=== PATIENT | male | born 1935 | race Caucasian/White ===

== ENCOUNTER 2016-08-19 09:24 | Day surgery (SDC) | payer MEDICARE, OTHER ==
[~2016-08-19] VITALS: Ht 160 cm; Wt 71.5 kg
[2016-08-19] VITALS (11 sets, daily range): BP systolic 110–135; BP diastolic 51–88; PULSE 81–96; RESP 15–24; Ht 160 cm; Wt 71.5 kg
[2016-08-19] MEDS ORDERED: LIDOCAINE 1% (MPF) 30 ML INJ ONE (10:03)
[2016-08-19] MEDS ORDERED: HEPARIN 1000 UNITS/ML 10 ML INJ ONE (10:03)
[2016-08-19] MEDS ORDERED: THROMBIN 5000 UNIT VIAL ONE (10:03)
[2016-08-19] MEDS ORDERED: GELATIN SIZE 100 SPONGE ONE (10:03)
[2016-08-19] MEDS ORDERED: DONE10TA7 PO (10:27)
[2016-08-19] MEDS ORDERED: QUET100T32 PO (10:28)
[2016-08-19] MEDS ORDERED: NATE60TA PO (10:28)
[2016-08-19] MEDS ORDERED: CARV3.12 PO (10:28)
[2016-08-19] MEDS ORDERED: DIVA-16 PO (10:31)
[2016-08-19] MEDS ORDERED: LEVO100T87 PO (10:32)
[2016-08-19] MEDS ORDERED: ATOR20TA38 PO (10:33)
[2016-08-19] MEDS ORDERED: MEMA10TA16 PO (10:35)
[2016-08-19] MEDS ORDERED: AMLO5TAB4 PO (10:36)
[2016-08-19] MEDS ORDERED: CLON-379 PO (10:37)
[2016-08-19] MEDS ORDERED: ALBU18HF INHALATION (10:37)
--- NOTE | 2016-08-19 10:39 | HPN ---
Date/Time of Note Date/Time of Note DATE: 08/19/16 TIME: 10:38 Interval H&P Admission Note Pt. seen H&P reviewed: No system changes FOZIA MARINO MD Aug 19, 2016 10:39
[2016-08-19] MEDS ORDERED: HEPARIN 1000 UNITS/ML 10 ML INJ IRR ONE (10:45)
[2016-08-19 10:51] LABS: ADD SCAN DIFF NO
[2016-08-19 10:54] LABS: BASOPHIL # 0.1 10^3/ul (0.0-0.1); BASOPHILS % 0.8 % (0.0-2.0); EOSINOPHILS # 0.3 10^3/ul (0.0-0.5); EOSINOPHILS % 3.5 % (0.0-7.0); HEMOGLOBIN 10.1 g/dl (14.0-18.0); LYMPHOCYTES # 0.9 10^3/ul (0.8-2.9); LYMPHOCYTES % 11.8 % (15.0-51.0); MEAN CORPUSCULAR HEMOGLOBIN 34.1 pg (29.0-33.0); MEAN CORPUSCULAR HGB CONC 34.8 g/dl (32.0-37.0); MEAN PLATELET VOLUME 10.2 fl (7.4-10.4); MONOCYTE # 0.9 10^3/ul (0.3-0.9); MONOCYTES % 11.8 % (0.0-11.0); NEUTROPHIL # 5.3 10^3/ul (1.6-7.5); NEUTROPHILS % 71.7 % (39.0-77.0); PLATELET COUNT 102 10^3/UL (140-415); RED BLOOD COUNT 2.96 10^6/ul (4.70-6.10); RED CELL DISTRIBUTION WIDTH 12.9 % (11.5-14.5); WHITE BLOOD COUNT 7.4 10^3/ul (4.8-10.8)
[2016-08-19 11:12] LABS: ALBUMIN 4.4 g/dl (3.3-4.9); ALBUMIN/GLOBULIN RATIO 1.91; BILIRUBIN,INDIRECT 0.3 mg/dl (0-1.1); BILIRUBIN,TOTAL 0.3 mg/dl (0.2-1.3); TOTAL PROTEIN 6.7 g/dl (6.1-8.1)
[2016-08-19] MEDS ORDERED: PROPOFOL 40 ML ONE (11:13)
[2016-08-19] MEDS ORDERED: FENTAnyl 50 MCG/ML VIAL ONE (11:13)
[2016-08-19] MEDS ORDERED: METOCLOPRAMIDE 10 MG INJ ONE (11:13)
[2016-08-19] MEDS ORDERED: ROPIVACAINE 0.2% 20 ML VIAL ONE (11:13)
[2016-08-19] MEDS ORDERED: MIDAZOLAM 1 MG/ML 2 ML INJ ONE (11:13)
--- NOTE | 2016-08-19 11:16 | RADRPT ---
PROCEDURE: XR Chest AP portable CLINICAL INDICATION: AV graft creation TECHNIQUE: An AP portable radiograph of the chest was submitted. COMPARISON: None. FINDINGS: Support Hardware: None Cardiovascular: The heart is not enlarged and the aorta appears unremarkable wall aorta appears athe rosclerotic. Lung Choi: A poor inspiratory effort compresses lung parenchyma with discoid atelectasis noted at the lung bases. No alveolar infiltrate is evident. Pleural Spaces: No pneumothorax or pleural effusion is identified. Osseous Structures: The osseous elements appear rarefied. Soft Tissues: The soft tissues appear generous. A vascular graft projects to the left scapula. IMPRESSION: 1. Atherosclerotic aorta without CHF. 2. Suboptimal inspiration with discoid atelectasis seen at the lung bases. 3. A vascular graft projects to the left scapula. Physician Maryjane Date Time Electronically viewed and signed by Dena Arriola Physician on 08/19/2016 11:16 /
[2016-08-19 11:23] LABS: CALCIUM 8.8 mg/dl (8.4-10.2); CREATININE 4.69 mg/dl (0.61-1.24); POTASSIUM 4.1 mmol/L (3.5-5.1)
[2016-08-19] MEDS ORDERED: DIPHENHYDRAMINE 50 MG INJ ONE (11:31)
[2016-08-19 11:38] LABS: INR 1.08; PT RATIO 1.1
[2016-08-19] MEDS ORDERED: EPHEDrine SULFATE 50 MG/5 ML SYG ONE (11:54)
[2016-08-19] MEDS ORDERED: PROPOFOL 20 ML ONE (12:15)
[2016-08-19] MEDS ORDERED: OXYCODONE/ACETAMINOPHEN (5/325) TAB PO PRN ×2 (13:00)
[2016-08-19] MEDS ORDERED: METOCLOPRAMIDE 10 MG INJ IV PRN (13:00)
[2016-08-19] MEDS ORDERED: HYDROmorphONE (0.2 MG/ML) 10ML SYG IV PRN ×3 (13:00)
[2016-08-19] MEDS ORDERED: DIPHENHYDRAMINE 50 MG INJ IV PRN (13:00)
[2016-08-19] MEDS ORDERED: MEPERIDINE 25 MG INJ IV PRN (13:00)
[2016-08-19] MEDS ORDERED: ONDANSETRON 4 MG INJ IV PRN (13:00)
--- NOTE | 2016-08-19 13:35 | OPR ---
DATE OF OPERATION: 08/19/2016 PREOPERATIVE DIAGNOSIS: End-stage renal disease. POSTOPERATIVE DIAGNOSIS: End-stage renal disease. PROCEDURE PERFORMED: Creation of right arm AV graft. SURGEON: Fozia Barber MD ANESTHESIA: Infraclavicular block anesthetic. ESTIMATED BLOOD LOSS: Minimal. COMPLICATIONS: There were no intraprocedural complications. INDICATIONS: This is an 81-year-old gentleman. He is moderately demented. He has a right femoral PermCath after his left upper arm AV fistula failed several weeks ago. I brought him in today for c reation of right arm access and placing a graft. He has a good cephalic vein in the upper arm, but I think we really need to get the catheter out of his femoral vein as he keeps pulling at it, so I p ut a graft in the upper arm which should be ready to use in 2 to 3 weeks. DESCRIPTION OF PROCEDURE: The patient was brought to the operating room and placed on the table in the supine position. The right arm was prepped and draped in the usual sterile fashion after an inf raclavicular block was placed by the anesthesiologist. I made 2 incisions in the upper arm, one rig ht above the elbow over the brachial artery pulse and one in the upper arm a little bit below the ax illa over the axillary artery pulse. I then dissected out the brachial artery right above the elbow . It was a good healthy artery. In the upper arm I dissected out the axillary vein, dissected it aw ay from the artery. It was a good sized vein. I then tunneled a 6-mm Artegraft between the 2 incisi ons using an aortic Cross clamp. I then clamped the axillary vein proximally and distally, made abo ut a 1.5-cm long venotomy, spatulated the end of the graft to fit the venotomy and anastomosed the d istal end of the graft to the side of the vein using 6-0 Prolene suture in a running standard vascul ar surgical fashion. I removed the clamps from the vein and flushed the graft. It flushed easily a nd there was good backflow. I then clamped the graft, then clamped the brachial artery proximally a nd distally, made an 8-mm long anterior arteriotomy. I then anastomosed the proximal end of the gra ft to the side of the brachial artery using 6-0 Prolene suture in a running standard vascular surgic al fashion. I removed the clamps. There was good hemostasis and an excellent thrill in the graft. I closed the skin incisions in 2 layers using an under layer of 3-0 Vicryl and an outer layer of 4- 0 Monocryl subcuticular sutures. Sterile dressing was applied. The patient was transferred to the recovery room in stable condition. He tolerated the procedure well, without any complication. Dictated By: FOZIA WOODS/VINEET Conf#: [id number] DID#: [id number]
--- NOTE | 2016-08-20 10:13 | RADRPT ---
Vent Rate: 72 bpm RR Interval: 0 msec NE Interval: 288 msec QRS Duration: 98 msec QT Interval: 394 msec QTC Interval: 431 msec P-R-T [place]: 64 - 45 - 60 degrees Sinus rhythm with 1st degree AV block Otherwise normal ECG Electronically Signed By: Alejo Maldonado [id number]
== END 2016-08-19 14:39 | disposition home or self-care (01) ==
LOC: SDS 09:24
PROVIDERS: ATTEND Surgery Vascular Surgery
DX: I12.0 Hypertensive chronic kidney disease with stage 5 chronic kidney disease or end stage renal disease (principal); N18.6 End stage renal disease; Z99.2 Dependence on renal dialysis; E11.22 Type 2 diabetes mellitus with diabetic chronic kidney disease; Z79.4 Long term (current) use of insulin; F03.90 Unspecified dementia, unspecified severity, without behavioral disturbance, psychotic disturbance, mood disturbance, and anxiety; J44.9 Chronic obstructive pulmonary disease, unspecified
CPT/HCPCS: 36821; 71010; 80053; 82962; 85025; 85610; 85730; 93005; C1725; C1768; J1200; J1644; J2250; J2765; J2795; J3010